=== PATIENT | female | born 1990 | race Caucasian/White ===

== ENCOUNTER 2021-05-15 12:16 | Emergency (ER) | payer OTHER, SELFPAY ==
[2021-05-15] MEDS ORDERED: Ibuprofen 200 MG TAB ONE (12:38)
== END 2021-05-15 13:32 | disposition home or self-care (01) ==
LOC: BURERS 12:16
DX: B34.9 Viral infection, unspecified (principal)
CPT/HCPCS: 87081; 87430; 87804; 99283